=== PATIENT | female | born 1975 | race Caucasian/White ===

== ENCOUNTER 2021-05-20 09:37 | Outpatient (CLI) | payer BC | END 2021-05-20 09:38 | disposition home or self-care (01) | LOC: CSHWCC 09:37 | PROVIDERS: ATTEND Nurse Practitioner Family | DX: I87.2 Venous insufficiency (chronic) (peripheral) (principal); S41.101D Unspecified open wound of right upper arm, subsequent encounter; S81.801D Unspecified open wound, right lower leg, subsequent encounter; S81.802D Unspecified open wound, left lower leg, subsequent encounter; J45.21 Mild intermittent asthma with (acute) exacerbation; F41.9 Anxiety disorder, unspecified; F42.4 Excoriation (skin-picking) disorder | CPT/HCPCS: 99203; G0463 ==